=== PATIENT | male | born 1945 | race Caucasian/White ===

== ENCOUNTER 2019-02-20 14:03 | Emergency (ER) | payer MEDICARE, BC ==
[2019-02-20] MEDS ORDERED: Lidocaine 1% 30 ML SDV INJECT ONE (14:22)
--- NOTE | 2019-02-20 15:21 | EDM.PDOC ---
ED HPI GENERAL MEDICAL PROBLEM - General Chief Complaint: Laceration Time Seen by Provider: 02/20/19 14:30 Source of Information: Reports: Patient History Limitations: Reports: No Limitations - History of Present Illness INITIAL COMMENTS - FREE TEXT/NARRATIVE: Pt. presents to ER with complaints of laceration to the webbing of his hand between his thumb and index finger of the R hand. Pt. states that the injury happened yesterday afternoon when he was breaking up branches. He states that his tetanus is up to date. Denies any injury elsewhere. He also complains of a sliver in the palm of the same hand that happened approx 1 week ago. Pt. denies any numbness or tingling to the fingers of the R hand. He states that the ROM is normal. Onset Date: 02/19/19 Location: Reports: Upper Extremity, Right Quality: Reports: Throbbing Severity: Moderate - Related Data Allergies Allergy/AdvReac Type Severity Reaction Status Date / Time NSAIDS (Non-Steroidal Allergy Stomach Verified 10/27/17 18:16 Anti-Inflamma Ache perfume oils Allergy Nausea Uncoded 10/27/17 18:16 Home Meds: Home Meds Multivitamin [Multiple Vitamins] 1 tab PO DAILY 07/20/15 [History] Pantoprazole [ProTONIX] 40 mg PO DAILY 07/20/15 [History] Albuterol [IJD: Albuterol] 2.5 mg NEB Q2H PRN nebule 10/27/17 [Rx] Albuterol/Ipratropium [DuoNeb 3.0-0.5 MG/3 ML] 3 ml NEB QID neb 10/27/17 [Rx] Azithromycin [Zithromax] 250 mg PO DAILY tablet 10/27/17 [Rx] Ferrous Sulfate 300 mg PO BID cup 10/27/17 [Rx] Lactated Ringers [Ringers, Lactated] 150 ml IV ASDIRECTED bag 10/27/17 [Rx] Lidocaine 1% [Xylocaine-MPF 1%] 2.1 ml IV DAILY@1800 vial 10/27/17 [Rx] cefTRIAXone [Rocephin] 1 gm IV DAILY@1800 vial 10/27/17 [Rx] methylPREDNISolone Sod Succ [Solu-MEDROL] 125 mg IV Q8H vial 10/27/17 [Rx] Past Medical History HEENT History: Reports: Cataract Other HEENT History: constant ringing in ears Other Respiratory History: smoker Gastrointestinal History: Reports: GI Bleed Other Gastrointestinal History: epigastric pain, wt loss Other Genitourinary History: spot on kidney thats being watched Dermatologic History: Reports: Other (See Below) Other Dermatologic History: purigo nodularis, sores on legs from [place] that do not heal - Infectious Disease History Infectious Disease History: Reports: Shingles - Past Surgical History GI Surgical History: Reports: Bariatric Procedure Social & Family History - Family History Family Medical History: Noncontributory - Caffeine Use Caffeine Use: Reports: Coffee ED ROS GENERAL - Review of Systems Review Of Systems: See Below Constitutional: Reports: No Symptoms HEENT: Reports: No Symptoms Respiratory: Reports: No Symptoms Cardiovascular: Reports: No Symptoms Endocrine: Reports: No Symptoms GI/Abdominal: Reports: No Symptoms : Reports: No Symptoms Musculoskeletal: Reports: Other (see HPI) Skin: Reports: No Symptoms Neurological: Reports: No Symptoms Psychiatric: Reports: No Symptoms Hematologic/Lymphatic: Reports: No Symptoms ED EXAM, SKIN/RASH Exam: See Below Exam Limited By: No Limitations General Appearance: Alert, WD/WN, No Apparent Distress Extremities: Normal Range of Motion, Normal Capillary Refill, Other (2.5 cm stellate laceration/skin tear noted to webbing between thmb and index finger of R hand. The laceration is superficial. No trauma to the structures underlying the laceration.) ED SKIN PROCEDURES - Laceration/Wound Repair Right Hand Progress/Comments: approx. 2.5 cm laceration to R hand between index finger and thumb. There is an area of redundant, devitilized tissue. The patient's hand was cleansed with chlorhexidine and normal saline. Pt. hand was prepped and draped in usual sterile fashion. A total of 2 ml of 1% lidocaine was used to anesthetize the area. The devitilized tissue was excised from the laceration. Attention was switched to the sliver in the palm of his hand. The area was cleansed with chlorhexidine and anesthetized with less than a ml of 1% lidocaine. A scalpel was used with scrape the callus and subsequently scrape out a very small wood sliver. Course - Orders/Labs/Meds Meds: Medications Discontinued Medications Generic Name Dose Route Start Last Admin Trade Name Freq PRN Reason Stop Dose Admin Lidocaine HCl 30 ml 02/20/19 14:22 02/20/19 14:39 Xylocaine-Mpf 1% INJECT 02/20/19 14:23 30 ml ONETIME ONE Administration Departure - Departure Time of Disposition: 15:25 Disposition: Home, Self-Care 01 Clinical Impression: Foreign body, Laceration - Discharge Information Instructions: Laceration Care, Adult Referrals: Tristen Bright MD [Primary Care Provider] - Forms: ED Department Discharge Additional Instructions: Keep dressing on for 48 hours. Then remove and keep open to air as much as possible. Return if there is any redness, swelling, or discharge from the laceration. Keep covered if you anticipate it getting dirty, keep uncovered and open to air if you are able. - Assessment/Plan Plan: Keep dressing on for 48 hours. Then remove and keep open to air as much as possible. Return if there is any redness, swelling, or discharge from the laceration. Keep covered if you anticipate it getting dirty, keep uncovered and open to air if you are able.
[2019-02-20 16:43] VITALS: BP 104/62
== END 2019-02-20 15:15 | disposition home or self-care (01) ==
LOC: VM.ED 14:03
DX: S61.421A Laceration with foreign body of right hand, initial encounter (principal); Z79.899 Other long term (current) drug therapy; Z88.8 Allergy status to other drugs, medicaments and biological substances; Z91.09 Other allergy status, other than to drugs and biological substances; W22.8XXA Striking against or struck by other objects, initial encounter
CPT/HCPCS: 10120; 12001; 99283; J2001

== ENCOUNTER 2019-04-11 06:38 | Day surgery (SDC) | payer MEDICARE, BC ==
[2019-04-11] MEDS ORDERED: Lactated Ringers 1,000 ML IV SCH (07:00)
[2019-04-11] MEDS ORDERED: Lidocaine 4% 5 ML Amp ONE (08:06)
[2019-04-11] MEDS ORDERED: fentaNYL 100 MCG/2 ML SDV ONE (09:10)
[2019-04-11] MEDS ORDERED: Propofol 200 MG/20 ML SDV ONE (09:10)
[2019-04-11 10:43] VITALS: BP 112/66
--- NOTE | 2019-04-11 11:31 | OR ---
SURGERY DATE: 04/11/2019. REFERRING PROVIDER: Tristen Bright MD. PRE-OPERATIVE DIAGNOSES: 1. History of Gilmore esophagus. 2. Iron deficiency anemia. 3. Some occasional dysphagia. This seems to be pharyngeal. The patient does not wear any dentures and has a hard time chewing certain foods. 4. 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 POST-OPERATIVE DIAGNOSES: 1. Gastric pouch present with mild gastritis. Cold biopsy x2 bites taken for path and Helicobacter pylori. 2. 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 Cold biopsies taken circumferentially at different levels for a total of 8 bites. PROCEDURE: Esophagogastroduodenoscopy with biopsies using cold forceps from 2 different sites (gastric pouch and lower esophagus). SURGEON: Jaime De Los Santos M.D. ANESTHESIA: Monitored anesthesia care. Shorty is a 73-year-old male, who was brought to the endoscope suite after discussion of risks and benefits (including but not limited to reaction to medication, bleeding, infection, aspiration, perforation). Informed consent was obtained for monitored anesthesia care and esophagogastroduodenoscopy along with possible biopsy and/or dilatation. Pre-procedure exam including oral cavity was unremarkable, except for absence of teeth. The patient does not wear any dentures either. IV, oxygen, and monitors were placed. Topical anesthesia consisting of Cetacaine spray was used in the pharynx. Patient was placed in the left lateral position and sedation was administered. A bite block was placed gently and scope lightly lubricated and passed through the bite block and over the tongue. Hypopharynx and vocal cords were visualized and unremarkable. Scope was passed through the cricopharynx and into the esophagus. The scope was then passed through the distal esophagus and the GE junction was visualized and photographed. The GE junction was remarkable for a 5 cm stretch of Gilmore esophagus with some mild esophagitis. On the way out, multiple cold biopsies were taken circumferentially totaling 8 bites using cold forceps. Vocal cords were visualized and unremarkable. The scope was advanced into the stomach and gastric santoro was suctioned. The gastric pouch was noted to have some mild gastritis. Cold biopsy x2 bites were taken from this area to check for H. pylori and path. The gastro-enteral anastomosis was intubated, and the small intestinal mucosa was normal in appearance. The stomach was desufflated on the way out. The esophagus was closely visualized during withdrawal and was normal once above the stretch of Gilmore's with mild esophagitis as noted above. The patient tolerated the procedure well and went to recovery in stable condition. The patient was monitored until at baseline status. Findings and discharge instructions were reviewed and the patient was discharged in good condition. COMPLICATIONS: None. TOTAL TIME: 12 minutes. ESTIMATED BLOOD LOSS: About 2 mL. RECOMMENDATIONS/FOLLOW-UP: We will await results of path reports to determine ideal followup interval. I would recommend the patient taking daily PPI or least an H2 roge to help control inflammation of the gastric pouch as well as the lower esophagus. I would like to kindly thank Dr. Tristen Bright, for this referral. DMB: 04/11/2019 09:40:33 MODL: 04/11/2019 10:52:07 /[id number] MTDNegro
== END 2019-04-11 10:30 | disposition home or self-care (01) ==
LOC: VM.SDS 06:38
PROVIDERS: ATTEND Family Medicine
DX: K22.70 Barrett's esophagus without dysplasia (principal); K21.0 Gastro-esophageal reflux disease with esophagitis; D50.0 Iron deficiency anemia secondary to blood loss (chronic); J44.9 Chronic obstructive pulmonary disease, unspecified; Z88.6 Allergy status to analgesic agent; Z91.09 Other allergy status, other than to drugs and biological substances; Z98.84 Bariatric surgery status; Z87.891 Personal history of nicotine dependence; Z79.899 Other long term (current) drug therapy
CPT/HCPCS: 00731; 43239; J2704; J3010; J7120

== ENCOUNTER 2020-02-21 10:09 | Emergency (ER) | payer MEDICARE, BC ==
[2020-02-21 10:29] VITALS: BP 113/62; PULSE 67
[2020-02-21] MEDS: Meclizine 25 MG Tab PO ONE (10:39)
--- NOTE | 2020-02-21 11:29 | CT ---
[id number] CT/CT Head WO IV EXAM: CT Head WO IV CLINICAL DATA: VERTIGO. COMPARISON STUDY: 2013. FINDINGS: No intracranial hemorrhage, extra-axial fluid collection, mass, or acute ischemia. 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 Paranasal sinuses and mastoid air cells are clear. IMPRESSION: No acute intracranial findings. Other findings are described above. Pepe Santoyo MD 02/21/20 1126 Thank you for allowing us to participate in the care of your patient.
[2020-02-21 11:39] LABS: CHLORIDE,CL 107 mmol/L (98-107); SODIUM,NA 142 mmol/L (136-145)
[2020-02-21 11:41] LABS: ANION GAP 14.7 mmol/L (10-20)
--- NOTE | 2020-02-27 13:44 | EDM.PDOC ---
ED HPI GENERAL MEDICAL PROBLEM - General Chief Complaint: General Time Seen by Provider: 02/21/20 11:50 Source of Information: Reports: Patient History Limitations: Reports: No Limitations - History of Present Illness INITIAL COMMENTS - FREE TEXT/NARRATIVE: Pt. presents to ER with acute onset severe vertigo. He states that he woke with the symptoms. Pt. has had issues with labyrinthitis in the past and has done vestibular therapy. Denies any numbness/tingling in extremities of face. No problems with speech or ambulation. He states that it feels like the room is spinning when he turns his head. He complains of some nausea but no vomiting. Denies any chest pain or shortness of breath. Onset Date: 02/21/20 Location: Reports: Generalized - Related Data Allergies Allergy/AdvReac Type Severity Reaction Status Date / Time NSAIDS (Non-Steroidal AdvReac Stomach Verified 02/21/20 10:30 Anti-Inflamma Ache perfume oils AdvReac Nausea Uncoded 04/11/19 07:13 Home Meds: Home Meds Pantoprazole Sodium 40 mg PO DAILY 02/20/19 [History] Multivitamin [Multi-Vitamin Daily] 1 tab PO DAILY 04/10/19 [History] Ferrous Sulfate [Iron] 325 mg PO DAILY 04/11/19 [History] Tamsulosin HCl 0.4 mg PO DAILY 02/21/20 [History] Past Medical History HEENT History: Reports: Cataract Other HEENT History: constant ringing in ears Cardiovascular History: Reports: Other (See Below) Other Cardiovascular History: palpitations Respiratory History: Reports: COPD, Pneumonia, Recurrent, Other (See Below) Other Respiratory History: hx smoker. Lung nodule Gastrointestinal History: Reports: GI Bleed Other Gastrointestinal History: epigastric pain, wt loss. Barrretts esophagitis Other Genitourinary History: spot on kidney thats being watched Musculoskeletal History: Reports: None Neurological History: Reports: Concussion Psychiatric History: Reports: None Endocrine/Metabolic History: Reports: None Hematologic History: Reports: Other (See Below) Other Hematologic History: chronic anemia Oncologic (Cancer) History: Reports: None Dermatologic History: Reports: Other (See Below) Other Dermatologic History: purigo nodularis, sores on legs from [place] that do not heal - Infectious Disease History Infectious Disease History: Reports: Shingles - Past Surgical History HEENT Surgical History: Reports: Cataract Surgery, Oral Surgery, Tonsillectomy GI Surgical History: Reports: Bariatric Procedure Other GI Surgeries/Procedures: gastroplasty in the 80s Social & Family History - Family History Family Medical History: Noncontributory - Tobacco Use Smoking Status *Q: Former Smoker Used Tobacco, but Quit: Yes Month/Year Tobacco Last Used: 0 - Caffeine Use Caffeine Use: Reports: Coffee ED ROS GENERAL - Review of Systems Review Of Systems: See Below Constitutional: Reports: No Symptoms. Denies: Fever, Chills, Malaise, Weakness , Fatigue, Night Sweats, Diaphoresis HEENT: Reports: Vertigo. Denies: Nosebleed, Sinus Problem, Throat Pain, Vision Change Respiratory: Reports: No Symptoms Cardiovascular: Reports: No Symptoms Endocrine: Reports: No Symptoms GI/Abdominal: Reports: No Symptoms : Reports: No Symptoms Musculoskeletal: Reports: No Symptoms Skin: Reports: No Symptoms Neurological: Reports: Dizziness. Denies: Confusion, Headache, Numbness, Paresthesia, Pre-Existing Deficit, Seizure, Syncope, Tingling, Trouble Speaking , Difficulty Walking, Weakness, Change in Speech, Gait Disturbance Psychiatric: Reports: No Symptoms Hematologic/Lymphatic: Reports: No Symptoms Immunologic: Reports: No Symptoms ED EXAM, GENERAL - Physical Exam Exam: See Below Exam Limited By: No Limitations General Appearance: Alert, WD/WN, No Apparent Distress Eye Exam: Bilateral Eye: EOMI, Normal Fundi, Normal Inspection, PERRL Ears: Normal External Exam, Normal Canal, Hearing Grossly Normal, Normal TMs Ear Exam: Bilateral Ear: Auricle Normal, Canal Normal, TM normal Nose: Normal Inspection, Normal Mucosa, No Blood Throat/Mouth: Normal Inspection, Normal Lips, Normal Teeth, Normal Gums, Normal Oropharynx, Normal Voice, No Airway Compromise Head: Atraumatic, Normocephalic Neck: Normal Inspection, Supple, Non-Tender, Full Range of Motion Respiratory/Chest: No Respiratory Distress, Lungs Clear, Normal Breath Sounds, No Accessory Muscle Use, Chest Non-Tender Cardiovascular: Normal Peripheral Pulses, Regular Rate, Rhythm, No Edema, No Gallop, No JVD, No Murmur, No Rub GI/Abdominal: Normal Bowel Sounds, Soft, Non-Tender, No Organomegaly, No Distention, No Abnormal Bruit, No Mass (Male) Exam: Deferred Rectal (Males) Exam: Deferred Back Exam: Normal Inspection, Full Range of Motion Extremities: Normal Inspection, Normal Range of Motion, Non-Tender, No Pedal Edema, Normal Capillary Refill Neurological: Alert, Oriented, CN II-XII Intact, Normal Cognition, Normal Gait, Normal Reflexes, No Motor/Sensory Deficits Psychiatric: Normal Affect, Normal Mood Skin Exam: Warm, Dry, Intact, Normal Color, No Rash EKG INTERPRETATION Rhythm: NSR [place]: Normal P-Wave: Present QRS: Normal ST-T: Normal QT: Normal Course - Vital Signs Last Recorded V/S: Last Vital Signs Temp 36.4 C 02/21/20 10:15 Pulse 67 02/21/20 10:15 Resp 14 02/21/20 10:15 BP 113/62 02/21/20 10:15 Pulse Ox 98 02/21/20 10:15 - Orders/Labs/Meds Labs: Laboratory Tests 02/21/20 02/21/20 02/21/20 Range/Units 11:04 11:04 11:08 WBC 4.6 (4.0-10.0) x10^3/uL RBC 4.46 L (4.5-6.0) x10^6/uL Hgb 12.8 L (14.0-18.0) g/dL Hct 37.8 L (40.0-52.0) % MCV 84.8 (78.0-93.0) fL MCH 28.7 (26.0-32.0) pg MCHC 33.9 (32.0-36.0) g/dL RDW Coeff of Cal 13.6 (10.0-15.0) % Plt Count 193 (130-400) x10^3/uL Neut % (Auto) 58.9 (50.0-80.0) % Lymph % (Auto) 26.1 (25.0-50.0) % [place] % (Auto) 12.3 H (2.0-11.0) % Eos % (Auto) 2.0 (0.0-4.0) % Baso % (Auto) 0.7 (0.2-1.2) % Sodium 142 (136-145) mmol/L Potassium 4.7 (3.5-5.1) mmol/L Chloride 107 (98-107) mmol/L Carbon Dioxide 25 (21-32) mmol/L Anion Gap 14.7 (10-20) mmol/L BUN 20 H D (7-18) mg/dL Creatinine 1.3 D (0.70-1.30) mg/dL Est Cr Clr Drug Dosing TNP Estimated GFR (MDRD) 54 Glucose 94 (74-106) mg/dL Calcium 8.9 (8.5-10.1) mg/dL Corrected Calcium 9.30 (8.5-10.1) mg/dL Total Bilirubin 0.5 (0.2-1.0) mg/dL AST 21 (15-37) U/L ALT 18 (16-63) U/L Alkaline Phosphatase 113 (46-116) U/L POC Troponin I 0.00 (0.00-0.08) ng/mL Total Protein 6.7 (6.4-8.2) g/dL Albumin 3.5 (3.4-5.0) g/dL Globulin 3.2 Albumin/Globulin Ratio 1.09 TSH, Ultra Sensitive 1.663 (0.358-3.74) uIU/mL Meds: Medications Discontinued Medications Generic Name Dose Route Start Last Admin Trade Name Freq PRN Reason Stop Dose Admin Meclizine HCl 25 mg 02/21/20 10:32 02/21/20 10:39 Antivert PO 02/21/20 10:33 25 mg ONETIME ONE Administration - Radiology Interpretation Free Text/Narrative:: CT brain negative for acute pathology Departure - Departure Time of Disposition: 13:30 Disposition: Home, Self-Care 01 Clinical Impression: Labyrinthitis - Discharge Information Instructions: Vertigo, [id number], Lorazepam tablets Referrals: Tristen Bright MD [Primary Care Provider] - Forms: ED Department Discharge Additional Instructions: You will be contacted by physical therapy. Ativan 0.5mg 1 every 4-6 hours as needed for dizziness. Drink plenty of fluids. Recheck in clinic in 7-10 days, sooner if not gradually improving. Sepsis Event Note - Evaluation Sepsis Screening Result: No Definite Risk - Problem List Review Problem List Initiated/Reviewed/Updated: Yes - Assessment/Plan Plan: You will be contacted by physical therapy. Ativan 0.5mg 1 every 4-6 hours as needed for dizziness. Drink plenty of fluids. Recheck in clinic in 7-10 days, sooner if not gradually improving.
== END 2020-02-21 11:56 | disposition home or self-care (01) ==
LOC: VM.ED 10:09
DX: H83.09 Labyrinthitis, unspecified ear (principal)
CPT/HCPCS: 36415; 70450; 80053; 84443; 84484; 85025; 93005; 99284-25; A9270-GY

== ENCOUNTER 2020-03-24 16:44 | Emergency (ER) | payer MEDICARE, BC ==
[2020-03-24 17:13] VITALS: BP 136/67; PULSE 77
--- NOTE | 2020-03-24 17:42 | EDM.PDOC ---
ED HPI GENERAL MEDICAL PROBLEM - General Chief Complaint: ENT Problem Stated Complaint: SOMETHING HIT HIS EAR Time Seen by Provider: 03/24/20 17:10 Source of Information: Reports: Patient History Limitations: Reports: No Limitations - History of Present Illness INITIAL COMMENTS - FREE TEXT/NARRATIVE: Pt. presents to ER with complaints of L ear pain. He states that he was driving in the car and states that he thinks a bee struck him in the ear. Pt. complains of intense pain to L upper helix of the ear. No discomfort in the canal. Denies any urticaria, shortness of breath, throat tightness, or rashes. Onset: Today Location: Reports: Face Quality: Reports: Burning Severity: Severe Left Ear Pain Score (Numeric/FACES): 8 - Related Data Allergies Allergy/AdvReac Type Severity Reaction Status Date / Time NSAIDS (Non-Steroidal AdvReac Stomach Verified 03/24/20 17:15 Anti-Inflamma Ache perfume oils AdvReac Nausea Uncoded 04/11/19 07:13 Home Meds: Home Meds Pantoprazole Sodium 40 mg PO DAILY 02/20/19 [History] Multivitamin [Multi-Vitamin Daily] 1 tab PO DAILY 04/10/19 [History] Ferrous Sulfate [Iron] 325 mg PO DAILY 04/11/19 [History] Tamsulosin HCl 0.4 mg PO DAILY 02/21/20 [History] Past Medical History HEENT History: Reports: Cataract Other HEENT History: constant ringing in ears Cardiovascular History: Reports: Other (See Below) Other Cardiovascular History: palpitations Respiratory History: Reports: COPD, Pneumonia, Recurrent, Other (See Below) Other Respiratory History: hx smoker. Lung nodule Gastrointestinal History: Reports: GI Bleed Other Gastrointestinal History: epigastric pain, wt loss. Barrretts esophagitis Other Genitourinary History: spot on kidney thats being watched Musculoskeletal History: Reports: None Neurological History: Reports: Concussion Psychiatric History: Reports: None Endocrine/Metabolic History: Reports: None Hematologic History: Reports: Other (See Below) Other Hematologic History: chronic anemia Oncologic (Cancer) History: Reports: None Dermatologic History: Reports: Other (See Below) Other Dermatologic History: purigo nodularis, sores on legs from [place] that do not heal - Infectious Disease History Infectious Disease History: Reports: Shingles - Past Surgical History HEENT Surgical History: Reports: Cataract Surgery, Oral Surgery, Tonsillectomy GI Surgical History: Reports: Bariatric Procedure Other GI Surgeries/Procedures: gastroplasty in the 80s Social & Family History - Family History Family Medical History: Noncontributory - Tobacco Use Smoking Status *Q: Unknown Ever Smoked - Caffeine Use Caffeine Use: Reports: Coffee ED ROS GENERAL - Review of Systems Review Of Systems: See Below Constitutional: Reports: No Symptoms HEENT: Reports: Ear Pain Respiratory: Reports: No Symptoms Cardiovascular: Reports: No Symptoms Neurological: Reports: No Symptoms Psychiatric: Reports: No Symptoms Immunologic: Reports: No Symptoms ED EXAM, GENERAL - Physical Exam Exam: See Below Exam Limited By: No Limitations General Appearance: Alert, WD/WN, No Apparent Distress Ears: Other ([place] of L ear is mildly inflammed. Portion of what appears to be a wasp or bee is present in the area with stinger still in the skin.) Nose: Normal Inspection Throat/Mouth: Normal Inspection, Normal Lips, Normal Teeth, No Airway Compromise Neck: Normal Inspection, Supple Respiratory/Chest: No Respiratory Distress, No Accessory Muscle Use, Chest Non- Tender Cardiovascular: Normal Peripheral Pulses, Regular Rate, Rhythm, No Edema, No JVD Course - Vital Signs Last Recorded V/S: Last Vital Signs Temp 37.3 C 03/24/20 17:00 Pulse 77 03/24/20 17:00 Resp 16 03/24/20 17:00 BP 136/67 03/24/20 17:00 Pulse Ox 95 03/24/20 17:00 Departure - Departure Time of Disposition: 17:43 Disposition: Home, Self-Care 01 Clinical Impression: Bee sting - Discharge Information Instructions: Bee, Wasp, or Hornet Sting, Adult Forms: ED Department Discharge Additional Instructions: Ice ear for 5 min every hour as needed for pain Tylenol as needed for discomfort Return to ER if you have any throat tightness, shortness of breath, or chest pain. Sepsis Event Note - Evaluation Sepsis Screening Result: No Definite Risk - Focused Exam Vital Signs: Vital Signs Temp Pulse Resp BP Pulse Ox 03/24/20 17:00 37.3 C 77 16 136/67 95 Date Exam was Performed: 03/24/20 Time Exam was Performed: 17:36 - Problem List Review Problem List Initiated/Reviewed/Updated: Yes - Assessment/Plan Plan: Ice painful area for 5 min every hour for pain. Tylenol as needed for discomfort. Return to ER if any shortness of breath, rash, or throat tightness.
== END 2020-03-24 17:36 | disposition home or self-care (01) ==
LOC: VM.ED 16:44
DX: T16.2XXA Foreign body in left ear, initial encounter (principal); F17.200 Nicotine dependence, unspecified, uncomplicated; Z91.048 Other nonmedicinal substance allergy status; Z88.6 Allergy status to analgesic agent; Z79.899 Other long term (current) drug therapy
CPT/HCPCS: 99282; 99283-GF

== ENCOUNTER 2023-08-24 10:15 | Day surgery (SDC) | payer MEDICARE, BC ==
[~2023-08-24 10:15] MED LIST: Lactated Ringers 1,000 ML IV SCH
[2023-08-24] MEDS: Lactated Ringers 1,000 ML IV SCH (10:42)
[2023-08-24] MEDS ORDERED: Propofol 200 MG/20 ML SDV ONE (11:54)
[2023-08-24] MEDS ORDERED: fentaNYL 100 MCG/2 ML SDV ONE (11:54)
[2023-08-24 13:05] VITALS: BP 94/54; PULSE 58
== END 2023-08-24 13:45 | disposition home or self-care (01) ==
LOC: VM.SDS 10:15
PROVIDERS: ATTEND Family Medicine
DX: K91.850 Pouchitis (principal); K29.50 Unspecified chronic gastritis without bleeding; C15.5 Malignant neoplasm of lower third of esophagus; K22.70 Barrett's esophagus without dysplasia; K22.10 Ulcer of esophagus without bleeding; K21.00 Gastro-esophageal reflux disease with esophagitis, without bleeding; I48.91 Unspecified atrial fibrillation; N40.0 Benign prostatic hyperplasia without lower urinary tract symptoms; J44.9 Chronic obstructive pulmonary disease, unspecified; Z87.11 Personal history of peptic ulcer disease; Z87.19 Personal history of other diseases of the digestive system; Z98.84 Bariatric surgery status; Z79.899 Other long term (current) drug therapy; Z88.8 Allergy status to other drugs, medicaments and biological substances; Z87.891 Personal history of nicotine dependence
CPT/HCPCS: 00731; 88305; 88341; 88342; 88360; J2704; J3010; J7120

== ENCOUNTER 2024-06-23 20:02 | Emergency (ER) | payer OTHER, MEDICARE, BC ==
[2024-06-23 20:25] LABS: BASOPHILS PERCENT AUTO 0.3 % (0.2-1.2); EOSINOPHILS ABSOLUTE AUTO 0.1 x10^3/uL (0.0-0.5); EOSINOPHILS PERCENT AUTO 1.3 % (0.0-4.0); HEMATOCRIT 34.3 % (40.0-52.0); HEMOGLOBIN 11.5 g/dL (14.0-18.0); IMMATURE GRAN ABSOLUTE AUTO 0.01 x10^3/uL (0.00-0.07); LYMPHOCYTES ABSOLUTE AUTO 0.6 x10^3/uL (1.0-4.8); LYMPHOCYTES PERCENT AUTO 10.3 % (25.0-50.0); MEAN CORPUSCULAR HEMOGLOBIN 30.6 pg (26.0-32.0); MEAN CORPUSCULAR HGB CONC 33.5 g/dL (32.0-36.0); MEAN CORPUSCULAR VOLUME 91.2 fL (78.0-93.0); MONOCYTES ABSOLUTE AUTO 0.4 x10^3/uL (0.0-0.8); NEUTROPHILS PERCENT AUTO 80.9 % (50.0-80.0); PLATELET COUNT,PLT 169 x10^3/uL (130-400); RED BLOOD CELL COUNT 3.76 x10^6/uL (4.5-6.0); WHITE BLOOD CELL COUNT,WBC 6.1 x10^3/uL (4.0-10.0)
[2024-06-23 20:29] LABS: PROTHROMBIN TIME 10.3 SEC (8.9-11.5)
[2024-06-23 20:33] LABS: A/G RATIO 1.28; ALANINE AMINOTRANSFERASE,ALT 17 U/L (16-63); ALBUMIN 3.7 g/dL (3.4-5.0); ALKALINE PHOSPHATASE 100 U/L (46-116); ANION GAP 16.5 mmol/L (5-15); ASPARTATE AMNIOTRANSFERASE,AST 18 U/L (15-37); BILIRUBIN TOTAL 0.6 mg/dL (0.2-1.0); BLOOD UREA NITROGEN,BUN 32 mg/dL (7-18); CALCIUM 8.8 mg/dL (8.5-10.1); CARBON DIOXIDE,CO2 20 mmol/L (21-32); CHLORIDE,CL 107 mmol/L (98-107); CREATININE 1.8 mg/dL (0.70-1.30); ESTIMATED GFR 38 mL/min (>=60); GLUCOSE RANDOM 237 mg/dL (70-99); POTASSIUM,K 4.5 mmol/L (3.5-5.1); PROTEIN TOTAL,TP 6.6 g/dL (6.4-8.2); SODIUM,NA 139 mmol/L (136-145)
[2024-06-23] MEDS: Iopamidol 612 MG/ML 100 ML Bottle IVPUSH ONE (21:54)
[2024-06-23] MEDS ORDERED: Lactated Ringers 1,000 ML IV ONE (23:01)
== END 2024-06-23 23:50 | disposition home or self-care (01) ==
LOC: VM.ED 20:02
DX: S36.029A Unspecified contusion of spleen, initial encounter (principal); M25.511 Pain in right shoulder; Z88.8 Allergy status to other drugs, medicaments and biological substances; Z91.048 Other nonmedicinal substance allergy status; Z79.899 Other long term (current) drug therapy; V95.9XXA Unspecified aircraft accident injuring occupant, initial encounter
CPT/HCPCS: 70450; 72125; 73030; 73562; 74177; 80053; 85025; 85610; 99284; J7120; Q9967